=== PATIENT | male | born 1935 | race American Indian/Alaskan Native ===

== ENCOUNTER 2017-11-26 13:23 | Emergency (ER) | payer MEDICARE ==
[2017-11-26] MEDS ORDERED: TYLENOL PO ONE (14:05)
[2017-11-26] MEDS ORDERED: NACL 0.9% 500 ML 500 ML IV ONE (14:06)
--- NOTE | 2017-11-26 14:07 | Event Note ---
Date: 11/26/17 Patient is an 82-year-old male, does not have a current primary care doctor, for some chronic medical problems, presents to the ER with a sensation of heart racing, head pounding. Patient reports a history of panic attacks, but reports his last panic attack was over 6 years ago. He cannot recall any obvious inciting factors at this time. He has no DVT or pulmonary embolus risk factors, and his headache is described as pulsing in nature, it is not historically consistent with a subarachnoid hemorrhage or temporal arteritis. Has a GCS of 15, with an NIH score of 0, and his physical exam is unremarkable with the exception of tachycardia. Check CT scan of the brain to exclude structural abnormalities, obtain x-ray of the chest, basic laboratory studies, urinalysis, and reassess.
[2017-11-26 14:31] LABS: Hematocrit 46.8 % (35.5-45.6); Hemoglobin 15.4 gm/dl (11.8-15.2); Mean Corpuscular HGB Conc 33 % (32-34); Mean Corpuscular Hemoglobin 31 pg (28-32); Mean Corpuscular Volume 93 fl (84-94); Platelet Count 174 K/mm3 (140-440); Red Blood Count 5.04 M/mm3 (3.65-5.03)
[2017-11-26 14:42] LABS: INR 0.99 (0.87-1.13)
--- NOTE | 2017-11-26 14:42 | Cat Scan Report ---
FINAL REPORT EXAM: CT HEAD/BRAIN WO CON HISTORY: head pounding TECHNIQUE: CT of the Head without IV contrast. PRIORS: None currently available. FINDINGS: Decreased attenuation regions in the periventricular and subcortical white matter are nonspecific and may represent small vessel ischemic disease, encephalopathy, edema, or a demyelinating process. Small vessel ischemic disease is more likely. Vascular calcifications. There is no evidence for acute ischemia. There is no hemorrhage. There is no midline shift. There is no hydrocephalus. There is no mass. Age appropriate justice-white matter attenuation is noted. There is no calvarial fracture. The temporal bones demonstrate aerated mastoid air cells. The middle ears appear unremarkable. Paranasal sinuses are unremarkable. Globes are intact. IMPRESSION: No acute intracranial findings. Chronic ischemic disease.
[2017-11-26 14:45] LABS: BUN/Creatinine Ratio 12; Blood Urea Nitrogen 11 mg/dL (9-20); Calcium 8.9 mg/dL (8.4-10.2); Hemolysis Index 4
--- NOTE | 2017-11-26 14:50 | Emergency Department Report ---
ED Anxiety HPI - General Chief Complaint: Anxiety Stated Complaint: TACHYCARDIA Time Seen by Provider: 11/26/17 13:48 Source: family Mode of arrival: Ambulatory - History of Present Illness Initial Comments: 82-year-old male past medical history panic attacks presents with complaint of intermittent panic attacks throughout the week. Patient is awake alert and oriented 3 fully lucid and conversant. States he does not feel panicked at this time. Denies alcohol or drug use. Denies smoking. Denies any specific triggers for panic or anxiety at this time. States he has had multiple stressors for the last several months. These episodes which she has experienced momentarily over the last week or consistent with previous episodes of panic attacks. Denies any current chest pain shortness of breath pleuritic chest pain nausea vomiting. Does state that he has sensation of heart racing but it has somewhat subsided since he spoke to Dr. Fournier during medical screening. Denies any history of PE or DVT MD Complaint: anxiety, heart racing Onset/Timin -: week(s) Symptoms: palpitations Place: home Severity: moderate Quality: intermittant Provoking factors: none known Improves With: nothing Worsens With: nothing - Related Data Allergies/Adverse Reactions: Allergies Allergy/AdvReac Type Severity Reaction Status Date / Time No Known Allergies Allergy Unverified 11/26/17 13:30 ED Review of Systems ROS: Stated complaint: TACHYCARDIA Other details as noted in HPI Constitutional: denies: chills, fever Eyes: denies: eye pain, eye discharge, vision change ENT: denies: ear pain, throat pain Respiratory: denies: cough, shortness of breath, wheezing Cardiovascular: denies: chest pain, palpitations Endocrine: no symptoms reported Gastrointestinal: denies: abdominal pain, nausea, diarrhea Genitourinary: denies: urgency, dysuria Musculoskeletal: denies: back pain, joint swelling, arthralgia Skin: denies: rash, lesions Neurological: denies: headache, weakness, paresthesias Psychiatric: anxiety. denies: depression Hematological/Lymphatic: denies: easy bleeding, easy bruising ED Past Medical Hx - Past Medical History Previous Medical History?: No - Surgical History Past Surgical History?: No - Social History Smoking Status: Former Smoker Substance Use Type: None ED Physical Exam - General Limitations: No Limitations General appearance: alert, in no apparent distress - Head Head exam: Present: atraumatic, normocephalic - Eye Eye exam: Present: normal appearance, PERRL, EOMI - ENT ENT exam: Present: mucous membranes moist - Neck Neck exam: Present: normal inspection, full ROM - Respiratory Respiratory exam: Present: normal lung sounds bilaterally. Absent: respiratory distress - Cardiovascular Cardiovascular Exam: Present: regular rate, normal rhythm, tachycardia. Absent : systolic murmur, diastolic murmur, rubs, gallop - GI/Abdominal GI/Abdominal exam: Present: soft (abdomen soft nontender nondistended 4 quadrants), normal bowel sounds - Rectal Rectal exam: Present: deferred - Extremities Exam Extremities exam: Present: normal inspection - Back Exam Back exam: Present: normal inspection - Neurological Exam Neurological exam: Present: alert, oriented X3, CN II-XII intact, normal gait - Expanded Neurological Exam Expanded Patient oriented to: Present: person, place, time Cranial nerves: EOM's Intact: Normal, Facial Sensation: Normal Cerebellar function: Finger to Nose: Normal, [place]: Normal Sensory exam: Upper Extremity Light Touch: Normal, Lower Extremity Light Touch: Normal Motor strength exam: RUE: 5, LUE: 5, RLE: 5, LLE: 5 Best Eye Response ([place]): (4) open spontaneously Best Motor Response ([place]): (6) obeys commands Best Verbal Response ([place]): (5) oriented [place] Total: 15 - Psychiatric Psychiatric exam: Present: normal affect, normal mood - Skin Skin exam: Present: warm, dry, intact, normal color. Absent: rash ED Course Vital Signs 11/26/17 11/26/17 11/26/17 13:27 15:05 15:49 Temperature 98.6 F Pulse Rate 113 H 103 H 96 H Respiratory 115 H 20 16 Rate Blood Pressure 170/95 Blood Pressure 150/92 156/80 [Left] O2 Sat by Pulse 97 99 99 Oximetry ED Medical Decision Making - Lab Data Result diagrams: 11/26/17 14:21 11/26/17 14:21 - Medical Decision Making A/P: Anxiety, tachycardia 1-case d/w ED attending 2-vital signs stabilized before discharge patient is no longer tachycardic 3-labs unremarkable, CT head unremarkable. Chest x-ray consistent with chronic COPD changes 4-f/u with primary care doctor. Patient has no suicidal or homicidal ideation. No active hallucinations. Critical care attestation.: If time is entered above; I have spent that time in minutes in the direct care of this critically ill patient, excluding procedure time. ED Disposition Clinical Impression: Anxiety Disposition: DC-01 TO HOME OR SELFCARE Is pt being admited?: No Does the pt Need Aspirin: No Condition: Stable Instructions: Palpitations (ED), Anxiety (ED) Referrals: [facility] [Outside] - 3-5 Days [facility] [Outside] - 3-5 Days Time of Disposition: 15:36
--- NOTE | 2017-11-26 15:05 | XRay Report ---
FINAL REPORT PROCEDURE: XR CHEST ROUTINE 2V TECHNIQUE: AP lateral chest HISTORY: tachycardia COMPARISON: No prior studies are available for comparison. FINDINGS: COPD. Calcified hilar lymph nodes right greater than left. Peribronchial cuffing and sheath thickening. IMPRESSION: COPD with calcified hilar adenopathy. No definite airspace process or effusion.
[2017-11-26 15:49] VITALS: BP 156/80
== END 2017-11-26 15:50 | disposition home or self-care (01) ==
LOC: ED 13:23
DX: F41.9 Anxiety disorder, unspecified (principal); R25.0 Abnormal head movements; R00.2 Palpitations
CPT/HCPCS: 36415; 70450; 71046; 80048; 84443; 85027; 85610; 93005; 93010; 99284; J7040